=== PATIENT | female | born 1950 | race Caucasian/White ===

== ENCOUNTER 2025-04-10 09:46 | Emergency (ER) | payer MEDICARE, SELFPAY ==
[2025-04-10] VITALS (30 sets, daily range): BP systolic 118–176; BP diastolic 54–82; PULSE 57–87; RESP 9–36; TEMP 36.6–37.1; O2SAT 97–100
--- NOTE | 2025-04-10 09:45 | RT.EKG_ITS ---
APPROVED REPORT Exam: Resting ECG Reason for Exam: dizziness Patient Location: E HR:75 bpm ECG Measurements Heart Rate 75 AXIS WA 167 P 6 QRSd 105 QRS 24 QT 369 T 56 QTc 414 Conclusion Sinus rhythm...normal P axis, V-rate 60- 99 Probable left ventricular hypertrophy...multiple LVH criteria
[2025-04-10 10:33] LABS: Abs Immature Grans 0.23 10^3/uL (0.0-0.06); HCT 25.0 % (36.0-46.0); HGB 8.7 g/dL (11.2-15.7); Immature Grans % 2.1 %; MCH 30.6 pg (27.0-33.0); MCHC 34.8 % (32.0-36.0); MCV 88 fL (80-95); MPV 10.2 fL (8.0-11.0); Platelet Count 461 10^3/uL (130-400); RBC 2.84 10^6/uL (3.93-5.22); RDW 11.8 % (11.7-14.6); RDW-SD 37.8 fL; WBC 11.11 10^3/uL (4.4-10.8)
--- NOTE | 2025-04-10 10:41 | W.ED.GENAD ---
Discharge Plan Disposition Patient Disposition: Home Condition: Stable Discharge Details Clinical Impression: Anemia, Electrolyte abnormality, Dehydration Primary Care Provider: Unknown,Unknown ED Provider: Laina Cuba Home Meds and New Rx's Prescriptions: Continued metoprolol succinate 50 mg tablet extended release 24 hr 50 mg PO BID hydrochlorothiazide 25 mg tablet 25 mg PO DAILY simvastatin 20 mg tablet 20 mg PO DAILY lisinopril 5 mg tablet 5 mg PO DAILY aspirin [Adult Low Dose Aspirin] 81 mg tablet,delayed release (DR/EC) 81 mg PO DAILY Discharge Instructions Instructions: Anemia caused by low iron, Why Water Is Important to Health, Dehydration, Adult ED Additional Instructions: Does appear today that you are dehydrated and you do have some anemia I do suspect that this is caused from your low iron. You were given some IV normal saline today. You are also given 40 mill equivalents of potassium p.o. Please increase electrolytes including Gatorade or similar oral rehydration drink over the next 3 to 4 days. Please continue taking the iron that was previously prescribed. Do take this with vitamin C or orange juice as this will help increase absorption. I was able to review your previous labs and MRI results no evidence on the MRI of spinal cord impingement you have some degenerative changes noted to your L-spine. No evidence for urinary tract infection today. Follow up with primary care provider in 3-5 days. Return to ED sooner if any worsening weakness, loss of bowel or bladder control, numbness or tingling around your groin or rectal area or concerns. Thank you for allowing us to care for you today. Referrals: [facility] [Outside] - 5 days Referral Note: ER follow-up, call for an appointment Clinical Impression: Anemia; Electrolyte abnormality; Dehydration Primary Care Provider [Outside] - 5 days Referral Note: ER follow-up, call for an appointment HPI General Mode of arrival: ambulatory. Date/Time Provider Initiated Documentation: 04/10/25 10:06. Limitations to Documentation: no limitations. Information obtained by: patient, RN notes reviewed and old records reviewed. HPI Narrative: 74-year-old female presents to the ER with a chief complaint of fall last night. Patient states that her legs gave out. She also reports some intermittent dizziness and fevers intermittently she is afebrile upon arrival. She states that she caught herself with a kitchen counter and did not fall to the ground. She has been seen and had an extensive workup at [facility] most recently had an MRI of her brain C-spine and L-spine 2 days ago which showed some degenerative changes she reports tingling sensations shooting pains and numbness in her lower extremities. She states that she has been worked up for Lyme and is frustrated and would like some answers. She does have a history of neuropathy. She denies any problems urinating loss of bowel or bladder control. Denies any current fevers. She does endorse feeling dehydrated and dry. Denies any nausea vomiting diarrhea or or abdominal pain. Denies any chest pain or shortness of breath. Related Data Home Medications ?Medication ?Instructions ?Recorded ?Confirmed aspirin 81 mg tablet,delayed 81 mg PO DAILY 04/10/25 04/10/25 release (Adult Low Dose Aspirin) hydrochlorothiazide 25 mg tablet 25 mg PO DAILY 04/10/25 04/10/25 lisinopril 5 mg tablet 5 mg PO DAILY 04/10/25 04/10/25 metoprolol succinate 50 mg 50 mg PO BID 04/10/25 04/10/25 tablet,extended release 24 hr simvastatin 20 mg tablet 20 mg PO DAILY 04/10/25 04/10/25 Allergies Allergy/AdvReac Type Severity Reaction Status Date / Time No Known Allergies Allergy Verified 04/10/25 09:59 General Stated Complaint: GenMedical JEANNETTE: 3 Review of Systems All systems reviewed & are unremarkable except as noted in HPI and below Constitutional Constitutional: Reports as per HPI, Reports frequent falls and Reports weakness Cardiovascular Cardiovascular: Denies chest pain and Denies dyspnea Respiratory Respiratory: Denies dyspnea Musculoskeletal Musculoskeletal: Reports as per HPI, Reports abnormal gait, Reports muscle weakness (Reports lower extremity muscle atrophy over the last month), Reports numbness and Reports tingling Neurologic Neurologic: Reports abnormal gait, Reports frequent falls, Reports numbness, Reports radicular pain, Reports tingling, Reports paresthesias and Reports weakness Exam Narrative Exam Narrative: Constitutional: Alert and oriented x3. Appears stated age. Normal body habitus. Head: Normocephalic, no trauma. Eyes: Pupils PERRL, Red reflex noted, EOM's intact. Eyelids symmetrical without lesions, discharge, or swelling. ENT: Bilateral TM's WNL, External ear normal to inspection, no mastoid TTP, swelling, or erythema, Nasal turbinates WNL, no nasal discharge. Normal dentition, Posterior pharynx WNL, no exudate. Chest: RRR, Normal S1, S2, distal pulses intact. Resp: Lungs clear to auscultation bilaterally, no wheezes, rales, or rhonchi. Abdomen: Soft, non-distended, Normoactive bowel sounds all 4 quads. Musculoskeletal: Normal gait, Moves all 4 extremities without difficulty. Skin: No suspicious rashes or lesions. Capillary refill less than 2 sec. Neurologic: Cranial nerves II-XII intact. Alert and oriented x 3. Motor: No deficits noted. Sensory: Intact bilaterally all 4 extremities. Hematologic/Lymphatic: No ecchymosis, no lymphadenopathy. Course Vital Signs Vital signs: Vital Signs Temperature 37.1 C 04/10/25 09:50 Pulse 85 04/10/25 09:50 Respiratory Rate 19 04/10/25 09:50 Blood Pressure 170/74 H 04/10/25 09:50 Pulse Oximetry 98 04/10/25 09:50 Temperature 37.1 C 04/10/25 10:14 Temperature Source Oral 04/10/25 10:14 Pulse 85 04/10/25 10:14 Respiratory Rate 19 04/10/25 10:14 Blood Pressure 170/74 H 04/10/25 10:14 Blood Pressure Position Sitting 04/10/25 10:14 Pulse Oximetry 98 04/10/25 10:14 Oxygen Delivery Method Room Air 04/10/25 10:14 Oxygen Flow Rate 0 04/10/25 10:14 Pain Level 0 04/10/25 10:14 Lab/Test Results Lab/Test Results: Laboratory Tests Range/Units 04/10/25 10:25 WBC (4.4-10.8) 10^3/uL 11.11 H RBC (3.93-5.22) 10^6/uL 2.84 L Hgb (11.2-15.7) g/dL 8.7 L Hct (36.0-46.0) % 25.0 L MCV (80-95) fL 88 MCH (27.0-33.0) pg 30.6 MCHC (32.0-36.0) % 34.8 RDW (11.7-14.6) % 11.8 Plt Count (130-400) 10^3/uL 461 H MPV (8.0-11.0) fL 10.2 Immature Gran % % 2.1 Neutrophils % % 69.5 Lymphocytes % % 20.3 Monocytes % % 7.7 Eosinophils % % 0.2 Basophils % % 0.2 Nucleated RBC % (0.0-0.3) % 0.0 Absolute Neutrophils (1.2-6.7) 10^3/uL 7.72 H Absolute Lymphocytes (1.2-3.4) 10^3/uL 2.26 Absolute Monocytes (0.1-0.8) 10^3/uL 0.86 H Absolute Eosinophils (0.0-0.7) 10^3/uL 0.02 Absolute Basophils (0.0-0.2) 10^3/uL 0.02 Medical Decision Making 74-year-old female presents to the ER with a chief complaint of fall last night. Patient states that her legs gave out. She also reports some intermittent dizziness and fevers intermittently she is afebrile upon arrival. She states that she caught herself with a kitchen counter and did not fall to the ground. She has been seen and had an extensive workup at [facility] most recently had an MRI of her brain C-spine and L-spine 2 days ago which showed some degenerative changes she reports tingling sensations shooting pains and numbness in her lower extremities. She states that she has been worked up for Lyme and is frustrated and would like some answers. She does have a history of neuropathy. She denies any problems urinating loss of bowel or bladder control. Denies any current fevers. She does endorse feeling dehydrated and dry. Denies any nausea vomiting diarrhea or or abdominal pain. Denies any chest pain or shortness of breath. CBC shows mild leukocytosis with white blood cell count 11.11 hemoglobin 8.7 hematocrit 25.0 platelet 461, sodium 132 potassium 3.3 chloride 93 BUN 24 creatinine 1.3 glucose 122 calcium 10.2 alk phos 256 troponin within normal limits albumin 3.0. Patient received 40 mill colons of potassium p.o. 500 cc normal saline. Discussed with patient her lab results she verbalized understanding. Awaiting urinalysis. Patient reports that she thinks that she can get up to the bathroom. Discussed at length once again with patient her results recommendations for home care, placed on care management list to assist her in getting a follow-up appointment with neurology at [facility]. She verbalized understanding. I did instruct her to continue taking the iron to reach out with her PCP and prescribing physician and to increase oral fluids with electrolyte replacement drinks she verbalized understanding. Patient was hemodynamically stable ambulatory without assistance from department. This text was generated using Briligation system, please disregard any oddities of phrase or misspellings. Medical Records Medical records reviewed: Yes I reviewed the patient's medical records. Lab Data Lab results reviewed: Yes I reviewed the patient's lab results. Labs: Laboratory Tests Range/Units 04/10/25 04/10/25 04/10/25 10: 11:25 12:43 WBC (4.4-10.8) 10^3/uL 11.11 H RBC (3.93-5.22) 10^6/uL 2.84 L Hgb (11.2-15.7) g/dL 8.7 L Hct (36.0-46.0) % 25.0 L MCV (80-95) fL 88 MCH (27.0-33.0) pg 30.6 MCHC (32.0-36.0) % 34.8 RDW (11.7-14.6) % 11.8 Plt Count (130-400) 10^3/uL 461 H MPV (8.0-11.0) fL 10.2 Immature Gran % % 2.1 Neutrophils % % 69.5 Lymphocytes % % 20.3 Monocytes % % 7.7 Eosinophils % % 0.2 Basophils % % 0.2 Nucleated RBC % (0.0-0.3) % 0.0 Absolute Neutrophils (1.2-6.7) 10^3/uL 7.72 H Absolute Lymphocytes (1.2-3.4) 10^3/uL 2.26 Absolute Monocytes (0.1-0.8) 10^3/uL 0.86 H Absolute Eosinophils (0.0-0.7) 10^3/uL 0.02 Absolute Basophils (0.0-0.2) 10^3/uL 0.02 Sodium (136-145) mmol/L 132 L Potassium (3.5-5.1) mmol/L 3.3 L Chloride (98-107) mmol/L 93 L Carbon Dioxide (21.0-32.0) mmol/L 27.0 Anion Gap (3-11) mmol/L 12.0 H BUN (7-18) mg/dL 24 H Creatinine (0.55-1.02) mg/dL 1.3 H Est GFR (CKD-EPI 2020) (mL/min/1.73m2) 43.42 Glucose (74-106) mg/dL 122 H Calcium (8.5-10.1) mg/dL 10.2 H Magnesium (1.8-2.4) mg/dL 2.0 Total Bilirubin (0.2-1.0) mg/dL 0.3 AST (15-37) U/L 35 ALT (14-59) U/L 51 Alkaline Phosphatase (46-116) U/L 256 H Troponin I (<or=51) ng/L 7 8 Total Protein (6.4-8.2) g/dL 7.0 Albumin (3.4-5.0) g/dL 3.0 L Urine Color (Yellow) Yellow Urine Clarity (Clear) Clear Urine pH (5-8) 7.5 Ur Specific [place] (1.005-1.025) 1.015 Urine Protein (Neg-Trace) mg/dL Negative Urine Ketones (Negative) mg/dL Negative Urine Blood (Negative) Negative Urine Nitrite (Negative) Negative Urine Bilirubin (Negative) Negative Urine Urobilinogen (Up to 0.2) mg/dL 0.2 Ur Leukocyte Esterase (Negative) Negative Urine Glucose (Negative) mg/dL Negative Range/Units 04/10/25 13:14 WBC (4.4-10.8) 10^3/uL RBC (3.93-5.22) 10^6/uL Hgb (11.2-15.7) g/dL Hct (36.0-46.0) % MCV (80-95) fL MCH (27.0-33.0) pg MCHC (32.0-36.0) % RDW (11.7-14.6) % Plt Count (130-400) 10^3/uL MPV (8.0-11.0) fL Immature Gran % % Neutrophils % % Lymphocytes % % Monocytes % % Eosinophils % % Basophils % % Nucleated RBC % (0.0-0.3) % Absolute Neutrophils (1.2-6.7) 10^3/uL Absolute Lymphocytes (1.2-3.4) 10^3/uL Absolute Monocytes (0.1-0.8) 10^3/uL Absolute Eosinophils (0.0-0.7) 10^3/uL Absolute Basophils (0.0-0.2) 10^3/uL Sodium (136-145) mmol/L Potassium (3.5-5.1) mmol/L Chloride (98-107) mmol/L Carbon Dioxide (21.0-32.0) mmol/L Anion Gap (3-11) mmol/L BUN (7-18) mg/dL Creatinine (0.55-1.02) mg/dL Est GFR (CKD-EPI 2020) (mL/min/1.73m2) Glucose (74-106) mg/dL Calcium (8.5-10.1) mg/dL Magnesium (1.8-2.4) mg/dL Total Bilirubin (0.2-1.0) mg/dL AST (15-37) U/L ALT (14-59) U/L Alkaline Phosphatase (46-116) U/L Troponin I (<or=51) ng/L Cancelled Total Protein (6.4-8.2) g/dL Albumin (3.4-5.0) g/dL Urine Color (Yellow) Urine Clarity (Clear) Urine pH (5-8) Ur Specific [place] (1.005-1.025) Urine Protein (Neg-Trace) mg/dL Urine Ketones (Negative) mg/dL Urine Blood (Negative) Urine Nitrite (Negative) Urine Bilirubin (Negative) Urine Urobilinogen (Up to 0.2) mg/dL Ur Leukocyte Esterase (Negative) Urine Glucose (Negative) mg/dL PFSH All Active Problems (Updated 04/10/25 @ 12:41 by Laina Cuba NP) Dehydration (Acute) Electrolyte abnormality (Acute) Anemia (Chronic) Social History Smoking/Tobacco Use Status: Former Tobacco Use Tobacco: How many years used: 20 Smoking risk assessment performed?: Yes Alcohol Intake: current Alcohol Intake frequency: a few times a week Drug use: Daily Substance use type: marijuana Do you feel safe at home: Yes
[2025-04-10 10:53] LABS: ALT 51 U/L (14-59); AST 35 U/L (15-37); Albumin 3.0 g/dL (3.4-5.0); Alkaline Phosphatase 256 U/L (46-116); Anion Gap 12.0 mmol/L (3-11); BUN 24 mg/dL (7-18); Bilirubin, Total 0.3 mg/dL (0.2-1.0); CO2 27.0 mmol/L (21.0-32.0); Calcium 10.2 mg/dL (8.5-10.1); Chloride 93 mmol/L (98-107); Estimated GFR 43.42 (mL/min/1.73m2); Glucose 122 mg/dL (74-106); Magnesium 2.0 mg/dL (1.8-2.4); Potassium 3.3 mmol/L (3.5-5.1); Sodium 132 mmol/L (136-145); Total Protein 7.0 g/dL (6.4-8.2); Troponin I 7 ng/L (<or=51)
[2025-04-10] MEDS: Potassium Chloride 20 MEQ TABCR 40 MEQ PO (11:07)
[2025-04-10] MEDS: Normal Saline 500 ML IV (11:09)
[2025-04-10 11:52] LABS: Troponin I 8 ng/L (<or=51)
[2025-04-10 13:00] LABS: Glucose Negative (Negative)
--- NOTE | 2025-04-12 09:10 | NUR.NOTE ---
Access chart to see if patient was discharge home for Dr. Carvalho who is her PCP. Call transferred to [facility] for release of records. Nursing Note:
--- NOTE | 2025-04-12 17:10 | NUR.NOTE ---
Access chart to determine if a referral was done and completed. Nursing Note:
== END 2025-04-10 13:59 | disposition home or self-care (01) ==
PROVIDERS: Emergency Provider Registered Nurse Emergency
DX: R42 Dizziness and giddiness (principal); E87.8 Other disorders of electrolyte and fluid balance, not elsewhere classified; D64.9 Anemia, unspecified; R53.1 Weakness; I10 Essential (primary) hypertension
CPT/HCPCS: 36415; 80053; 93005; 96360; 96361; 99284; 81003; 83735; 84484; 85025; 93010